=== PATIENT | female | born 1985 | race Caucasian/White ===

== ENCOUNTER 2019-05-14 16:29 | Emergency (ER) | payer OTHER ==
[~2019-05-14] VITALS: Ht 172.7 cm; Wt 83.9 kg
[~2019-05-14 16:29] MED LIST: AMOX1TAB12 PO; ASTLIN; OSEL75CA PO; PREVACID; TUSSI PRES-B L120 M1 PO; TYLENOL EXTRA500 MG PO; ZANTAC; [UNRECOGNIZED DRUG - OTHER]; [UNRECOGNIZED DRUG - REMARK]
== END 2019-05-14 17:56 | disposition home or self-care (01) ==
LOC: ER 16:29
DX: B34.9 Viral infection, unspecified (principal); R05 Cough

== ENCOUNTER 2019-07-11 09:29 | Emergency (ER) | payer OTHER ==
[~2019-07-11] VITALS: Ht 172.7 cm; Wt 86.2 kg
[2019-07-11] MEDS ORDERED: ZANTAC150 M3 PO (12:34)
[2019-07-11] MEDS ORDERED: INTESTINEX680 M1 PO (12:34)
== END 2019-07-11 12:52 | disposition home or self-care (01) ==
LOC: ER 09:29
DX: K52.9 Noninfective gastroenteritis and colitis, unspecified (principal)

== ENCOUNTER 2019-09-04 22:20 | Emergency (ER) | payer OTHER ==
[~2019-09-04] VITALS: Ht 152.4 cm; Wt 93.0 kg
[~2019-09-04 22:20] MED LIST changes: +INTESTINEX680 M1 PO; +ZANTAC150 M3 PO
== END 2019-09-05 02:12 | disposition home or self-care (01) ==
LOC: ER 22:20
DX: R53.81 Other malaise (principal)

== ENCOUNTER 2024-06-20 12:31 | Emergency (ER) | payer OTHER ==
[~2024-06-20] VITALS: Ht 172.7 cm; Wt 102.5 kg
[2024-06-20] MEDS ORDERED: FAMOTIDINE/PF 20 MG/2 ML VIAL IV ONE (15:15)
[2024-06-20] MEDS ORDERED: 0.9 % SODIUM CHLORIDE 500 ML IV ONE (15:15)
[2024-06-20] MEDS ORDERED: ONDANSETRON HCL 2 MG/ML VIAL IV ONE (15:15)
[2024-06-20] MEDS ORDERED: ONDANSETRON HCL 2 MG/ML VIAL ONE (15:20)
[2024-06-20] MEDS ORDERED: FAMOTIDINE/PF 20 MG/2 ML VIAL ONE (15:20)
[2024-06-20 15:47] LABS: HEMOGLOBIN 12.2 g/dL (12.0-15.00); MEAN CELL VOLUME 90.7 fL (80.00-100.00); MEAN CORPUSCULAR HEMOGLOBIN 30.8 pg (27.00-32.0); PLATELET COUNT 288 K/uL (150-450); RED BLOOD COUNT 3.97 M/uL (4.00-6.00); RED CELL DISTRIBUTION WIDTH 14.3 % (11.5-14.5)
[2024-06-20 16:04] LABS: URINE BILIRRUBIN Negative (NEGATIVE); URINE BLOOD Negative; URINE COLOR Yellow; URINE GLUCOSE Negative (NEGATIVE); URINE KETONE Negative (NEGATIVE); URINE LEUKOCYTE Trace; URINE NITRATE Negative; URINE PROTEIN Negative (NEGATIVE)
[2024-06-20 16:05] LABS: URINE BACTERIA 5459.4 uL (0.0-1933); URINE EPITHELIAL CELLS 28.7 uL (0.0-38.8); URINE RBC 44.4 uL (0.0-20.8); URINE WBC 43.1 uL (0.0-23.2)
[2024-06-20 16:07] LABS: URINE APPEARANCE SL CLOUDY; URINE CAST 0.61 uL (0.0-1.40)
[2024-06-20 16:21] LABS: ALBUMIN 3.7 gm/dL (3.4-5.0); BILIRUBIN TOTAL 0.47 mg/dL (0.3-1.2); CALCIUM 8.8 mg/dL (8.5-10.1); CREATININE SERUM 0.72 mg/dL (0.55-1.02); GFR 89.26; POTASSIUM 3.4 mEq/L (3.5-5.1); TOTAL PROTEIN 7.7 gm/dL (6.4-8.2)
[2024-06-20] MEDS ORDERED: CEFTRIAXONE SODIUM 1,000 MG VIAL IV ONE (18:00)
[2024-06-20] MEDS ORDERED: CEPHALEXIN500 M1 PO (18:03)
[2024-06-20] MEDS ORDERED: OxyCODONE HCL/APAP UD (PERCOCET) PO STA (18:04)
[2024-06-20] MEDS ORDERED: CEFTRIAXONE SODIUM 1,000 MG VIAL ONE (18:07)
== END 2024-06-20 18:22 ==
LOC: ER 12:32
PROVIDERS: Nurse Practitioner Family
DX: N39.0 Urinary tract infection, site not specified (principal); Z88.6 Allergy status to analgesic agent